=== PATIENT | male | born 1960 | race Asian ===

== ENCOUNTER 2019-03-06 11:22 | Day surgery (SDC) | payer OTHER, SELFPAY ==
--- NOTE | 2019-03-06 | PATH_ITS ---
[facility] Accession Number: [id number] . 01 Material submitted: . PART A: small bowel - SMALL BOWEL BIOPSIES PART B: gastrointestinal site - BODY ANTRUM BIOPSIES PART C: colon - CECAL POLYP PART D: colon - ASCENDING COLON POLYP PART E: colon - RECTOSIGMOID POLYP . 01 Clinical history: . SCREENING COLONOSCOPY / EGD . 02 Diagnosis: A. Small Bowel, Biopsies: Small bowel mucosa with no diagnostic abnormality. Negative for active inflammation, features of sprue, dysplasia or malignancy. . B. Stomach, Body and Antrum, Biopsies: Helicobacter pylori gastritis. A moderate number of forms morphologically consistent with Helicobacter pylori identified on H/E stain. Negative for intestinal metaplasia. Negative for dysplasia or malignancy. . C. Cecum, Polyp: Colonic mucosa with prominent benign lymphoid aggregate. Negative for serrated lesion, dysplasia or malignancy. Additional step sections examined. . D. Ascending Colon, Polyp: Small serrated lesion, cannot exclude early sessile serrated adenoma. Additional step sections examined. . E. Rectosigmoid Colon, Polyp: Hyperplastic polyp. [facility] 03/12/2019 1420 Local . 02 Electronically signed: . Jesus Angel MD, PhD, Pathologist NPI- [id number] . 01 Gross description: . Part A: SMALL BOWEL BIOPSIES: Received in formalin are 3 fragment(s) of palencia, soft tissue measuring 0.4 x 0.2 x 0.2 cm to 0.2 x 0.1 x 0.1 cm submitted entirely in 1 cassette(s) Part B: BODY ANTRUM BIOPSIES: Received in formalin are 3 fragment(s) of palencia, soft tissue measuring 0.4 x 0.2 x 0.2 cm to 0.3 x 0.2 x 0.1 cm submitted entirely in 1 cassette(s) Part C: CECAL POLYP: Received in formalin is 1 fragment(s) of palencia, soft tissue measuring 0.9 x 0.2 x 0.1 cm submitted entirely in 1 cassette(s) Part D: ASCENDING COLON POLYP: Received in formalin is 1 fragment(s) of palencia, soft tissue measuring 0.4 x 0.3 x 0.1 cm submitted entirely in 1 cassette(s) Part E: RECTOSIGMOID POLYP: Received in formalin is 1 fragment(s) of palencia, soft tissue measuring 0.3 x 0.3 x 0.2 cm submitted entirely in 1 cassette(s) /QBJ 03/07/2019 0722 Local . 02 Pathologist provided ICD-10: K29.70, B96.81, D12.2, K63.5 . 02 CPT . 946981, 703795, 575245, 029535, 581372 Performed at: 01 [facility] [address] [place] [address], [place], [place] [id number] MD Isaac Seymour MD Phone: [phone] Performed at: 02 [facility] [address] [place], [place] [id number] MD Mary Scruggs MD Phone: [phone]
[2019-03-06 11:37] VITALS: BMI 22.6
[2019-03-06 11:41] VITALS: BP 148/86; PULSE 72; RESP 16; TEMP 36.8; O2SAT 99
[2019-03-06] MEDS: SODIUM CHLORIDE 0.9% 1,000 ML 70 ML IV (11:58)
--- NOTE | 2019-03-06 13:03 | PM.HP.1 ---
History of Present Illness History of Present Illness Date Patient Seen: 03/06/19 Time Patient Seen: 13:03 Chief complaint: [id number] SCREENING COLONOSCOPY & EGD Narrative: Patient presented for EGD and colonoscopy. He was last seen in the office on January 02, 2018. He denies any changes to his symptoms at that time. He continues to experience epigastric pain and symptoms of dyspepsia. He is also due for screening colonoscopy. His last colonoscopy was in 2007. Patient History Medical History Gout (Acute) Hypertension (Acute) Hypothyroidism (Acute) Family & Social History Social History: household members spouse Meds Home Medications and Allergies Home Medications Medication Instructions Recorded Confirmed Type levothyroxine [Synthroid] 12.5 mcg PO DAILY 03/06/19 03/06/19 History lisinopril 10 mg PO DAILY 03/06/19 03/06/19 History omeprazole 20 mg PO DAILY 03/06/19 03/06/19 History Allergies Allergy/AdvReac Type Severity Reaction Status Date / Time No Known Drug Allergies Allergy Verified 03/06/19 11:32 Review of Systems Review of Systems ROS Unobtainable: All systems reviewed & are unremarkable except as noted in HPI and below Exam Vital Signs (past 8 hours): - 03/06/19 11:41 Temperature 98.2 F Pulse Rate 72 Respiratory Rate 16 Blood Pressure 148/86 H Pulse Oximetry 99 Oxygen Delivery Method Room Air Const General: cooperative, healthy appearing, comfortable, well developed and well groomed Nutritional Appearance: average body habitus Orientation: alert and awake Resp Effort & Inspection: normal respiratory effort Auscultation: clear to auscultation bilaterally Cardio Rate: regular rate Rhythm: regular rhythm Heart Sounds: S1 normal and S2 normal GI Palpation: soft, No guarding and No rigid Percussion: normal to percussion Auscultation: normal bowel sounds Extrem Right lower extremity: no edema Left lower extremity: no edema Assessment & Plan Assessment & Plan narrative: 1. Epigastric pain 2. Dyspepsia 3. Screening colonoscopy EGD and colonoscopy today, further recommendations to follow
[2019-03-06] MEDS: LIDOCAINE 4% SOLN 50 ML 20 ML TOP (13:10)
[2019-03-06] MEDS: fentaNYL 250 MCG/5 ML INJ IV (13:11)
[2019-03-06] MEDS: MIDAZOLAM 5 MG/5 ML VIAL IV (13:12)
[2019-03-06 13:45] VITALS: BP 135/86; PULSE 70; RESP 12; TEMP 36.6; O2SAT 100
[2019-03-06 13:50] VITALS: BP 150/95; PULSE 72; RESP 17; O2SAT 98
[2019-03-06 13:56] VITALS: BP 146/91; PULSE 69; RESP 17; TEMP 36.3; O2SAT 98
--- NOTE | 2019-03-06 13:56 | PM.OP.ENDO ---
Operative Date/Time/Diagnoses Date of procedure: 03/06/19 Time of procedure: 13:11 Procedure Notes Procedure in detail: Surgeon: Laura Brown DO Procedure: Esophagogastroduodenoscopy with biopsy and colonoscopy with polypectomy Preoperative diagnosis: 1. Epigastric abdominal pain 2. Dyspepsia 3. Average risk screening colonoscopy, last colonoscopy 2007 Postoperative diagnosis: 1. Gastritis 2. Mild duodenitis 3. Cecal polyp -3 mm 4. Ascending colon polyp 2 mm 5. Rectosigmoid polyp 3 mm 6. Scattered small diverticula in the sigmoid colon Medications: Conscious sedation using 3 mg IV of Midazolam and 125 mcg IV of Fentanyl (total for both procedures) Preanesthesia Assessment An H and P was performed/updated and the Px?s ASA class is 2. The procedure was discussed in detail with the patient. The potential risks and complications including infection, bleeding, missed lesions, perforation, need for surgery in case of perforation, prolonged hospital stay, and were explained. A brief question and answer period was allotted and once all questions were answered, informed consent was obtained. The patient was brought back to the procedure room and placed on standard monitoring. The patient?s vital signs were monitored continuously throughout the entire procedure. Prior to starting, a timeout was performed to confirm the patient?s identity, allergies, medications, and procedure. Procedure in detail The patient was placed in left lateral decubitus position and a bite block was inserted. The tip of the upper endoscope was placed into the mouth and advanced without difficulty under direct visualization into the esophagus. Esophagus: Normal appearing esophagus Stomach: Gastritis noted throughout the antrum, body -biopsy to rule out H pylori Abnormal stomach on retroflexion Duodenum: Mild duodenitis noted in the 1st and 2nd portion of the to out celiac sprue After the upper endoscopy, preparations were made for the colonoscopy. Once adequate sedation was obtained a MARTHA was performed. The digital rectal examination did not reveal any palpable lesions. The tip of the colonoscope was placed in the anal canal and advanced without difficulty all the way to the cecum which was identified by the appendiceal orifice and the ileocecal valve. Cecal polyp, 3 mm removed with Jumbo forceps. Ascending colon polyp 2 mm removed with Jumbo forceps, rectosigmoid junction polyp 3 mm removed with Jumbo forceps. Scattered diverticula noted in the sigmoid colon. Exam was otherwise unremarkable heart The patient tolerated the procedure well and will be brought back to the recovery area to be discharged once criteria are met. The prep was judged to be good/excellent and adequate to identify polyps less than 5 mm. The withdrawal time was 10min. The total physician intraservice time was 29min. Complications There were no complications and estimated blood loss was minimal. Recommendations Resume previous diet Continue outpatient medications Follow-up pathology results Repeat colonoscopy will be determined after colonoscopy pathology results are reviewed Follow-up at our office if persistent symptoms An emergency contact number was given to the patient for any complications related to the procedure
[2019-03-06 14:04] VITALS: BP 138/83; PULSE 72; RESP 15; TEMP 36.7; O2SAT 99
== END 2019-03-06 14:18 | disposition home or self-care (01) ==
PROVIDERS: PCP Nurse Practitioner Family; Visit Provider Student in an Organized Health Care Education/Training Program
PROC: 0DJ08ZZ Inspection of Upper Intestinal Tract, Via Natural or Artificial Opening Endoscopic (ICD-10-PCS; CPT 43235; principal; 2019-03-06 12:30)
PROC: 0DJD8ZZ Inspection of Lower Intestinal Tract, Via Natural or Artificial Opening Endoscopic (ICD-10-PCS; CPT 45378; 2019-03-06 12:30)
DX: Z12.11 Encounter for screening for malignant neoplasm of colon (principal); K30 Functional dyspepsia; K29.70 Gastritis, unspecified, without bleeding; B96.81 Helicobacter pylori [H. pylori] as the cause of diseases classified elsewhere; K29.80 Duodenitis without bleeding; K57.30 Diverticulosis of large intestine without perforation or abscess without bleeding; D12.2 Benign neoplasm of ascending colon; K63.5 Polyp of colon
CPT/HCPCS: 45380; 43239; J2250; J3010

== ENCOUNTER 2024-07-10 08:54 | Day surgery (SDC) | payer OTHER, SELFPAY ==
[2024-07-10] VITALS (7 sets, daily range): BP systolic 76–153; BP diastolic 46–99; PULSE 71–84; RESP 12–20; TEMP 36.2–36.3; O2SAT 94–97
--- NOTE | 2024-07-10 | PATH_ITS ---
[facility] Accession Number: [id number] No. of containers..01 Tissue . 01 Material submitted: . colon - 60cm COLON POLYPS . 01 Diagnosis: COLON AT 60 CM: Tubular adenomas. [facility] 07/12/2024 1541 Local . 01 Electronically signed: . Ashley Nolan DO, Pathologist NPI- [id number] . 01 Gross description: . 60cm COLON POLYPS: Received in formalin are 2 fragment(s) of palencia, soft tissue measuring 0.2 x 0.2 x 0.2 cm to 0.4 x 0.3 x 0.2 cm submitted entirely in 1 cassette(s) /ÁNGEL 07/11/20242005 Local . 01 Pathologist provided ICD-10: Z12.11 . 01 CPT . 893548 Specimen Comment: A courtesy copy of this report has been sent to [phone] Performed at: [address] [facility] [id number] MD Isaac Seymour MD Phone: [phone]
--- NOTE | 2024-07-10 09:32 | PM.HP.IH.1 ---
History of Present Illness History of Present Illness Date Patient Seen: 07/10/24 Chief complaint: Screening Colonoscopy [facility] Medical History Gout Hypothyroidism Hypertension Social History household members: spouse Meds Home Medications and Allergies Home Medications Medication Instructions Recorded Confirmed Type levothyroxine 25 mcg tablet 12.5 mcg PO DAILY 03/06/19 07/10/24 History (Synthroid) famotidine 20 mg tablet 20 mg PO BID PRN Heartburn 07/09/24 07/10/24 History metformin 500 mg tablet 500 mg PO DAILY 07/09/24 07/10/24 History rosuvastatin 40 mg tablet 40 mg PO DAILY 07/09/24 07/10/24 History colchicine 0.6 mg tablet 0.6 mg PO BID PRN Gout 07/10/24 07/10/24 History naproxen 500 mg tablet 500 mg PO BID PRN Pain (Scale 07/10/24 07/10/24 History Score 4-6) sildenafil 100 mg tablet 100 mg PO DAILY PRN Erectile 07/10/24 07/10/24 History Dysfunction Allergies Allergy/AdvReac Type Severity Reaction Status Date / Time No Known Drug Allergies Allergy Verified 07/10/24 09:20 Exam Narrative Exam Narrative: Oropharynx free of lesions Chest clear to auscultation percussion Cardiac exam reveals no S3 or murmur Assessment & Plan Assessment & Plan narrative: History of polyps need for follow-up colonoscopy. Risks, benefits, alternatives have been explained. Time-Based Coding :: [TOTAL MINUTES] spent with patient and on the chart (including review of chart, obtaining history, exam, reviewing outside data, placing orders, documenting exam and treatment plan, and counseling patient) on [DATE]. [employer] Document charge(s): No
[2024-07-10] MEDS: LACTATED RINGERS 1,000 ML 42 ML IV (09:33)
--- NOTE | 2024-07-10 09:33 | PM.OP.COLON ---
Operative Date/Time/Diagnoses Date of procedure: 07/10/24 Pre-op diagnosis: See indication and findings Procedure & Clinicians Study performed: Colonoscopy Same procedure as scheduled: Yes Indications: Screening history of polyps Surgeon: Divya Salcido Procedure Notes Procedure in detail: After informed consent was obtained the patient was placed in left lateral decubitus position. The video colonoscope was introduced the rectum slowly advanced cecum. Preparation was good. On slow withdrawal mucosa was carefully examined. The scope was removed. The patient tolerated procedure well. Blood loss none Complications none Sedation mac Findings 1. Two polyps sized 6 mm and 4 mm at 60 cm from the anal verge. Both multiple Jumbo biopsy removed completely 2. Otherwise negative colonoscopy to cecum Suggest follow-up colonoscopy in 5 years
== END 2024-07-10 11:02 | disposition home or self-care (01) ==
PROVIDERS: Referring Provider Internal Medicine Gastroenterology; Visit Provider Internal Medicine Gastroenterology
PROC: 0DJD8ZZ Inspection of Lower Intestinal Tract, Via Natural or Artificial Opening Endoscopic (ICD-10-PCS; CPT 45378; principal; 2024-07-10 10:00)
DX: Z12.11 Encounter for screening for malignant neoplasm of colon (principal); Z86.0100 Personal history of colon polyps, unspecified; D12.6 Benign neoplasm of colon, unspecified
CPT/HCPCS: 45380; J2704